=== PATIENT | male | born 2000 | race Caucasian/White ===

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

== ENCOUNTER → 2022-02-22 | Outpatient (CLI) | payer BC, SELFPAY ==
--- NOTE | 2022-02-22 09:00 | ECHOD_ITS ---
Reason For Study: CARDIAC MURMUR Procedure This was a 2D Doppler, Color Flow transthoracic echocardiogram. The study was technically difficult. Due to body habitus. Exam performed in department. Left Ventricle Normal LV size. Left ventricular systolic function is normal. The estimated ejection fraction is 65 %. No evidence for diastolic dysfunction. Right Ventricle Normal RV size. Normal systolic function. Atria Normal left atrium. Normal right atrium. No doppler evidence for ASD. Bubble contrast study negative for right to left interatrial shunt. Mitral Valve There is no mitral annular calcification. Mild diffuse mitral valve thickening. Myxomatous mitral valve. Mild mitral valve prolapse. Mild (1+) eccentric mitral valve insufficiency. Tricuspid Valve Normal tricuspid valve. Trivial tricuspid valve insufficiency. Unable to estimate RV systolic pressure due to insufficient tricuspid regurgitant envelope. Aortic Valve Based upon the 2D echocardiographic images obtained the aortic valve appears compatible with a bicuspid aortic valve without obvious stenosis or insufficiency. Pulmonic Valve The pulmonic valve is not well visualized. Great Vessels Normal sized aortic root. Pericardium/Pleural No pericardial effusion. Medication 22 gauge I.V. with prn adaptor inserted into right arm. Performed a rapid injection of agitated mix of 9 cc saline and 1cc air to assess for atrial septal defect. Bubble study per doctor's order. MMode/2D Measurements & Calculations LVIDd: 4.9 cm IVSd: 0.71 cm Ao root diam: 3.1 cm LVIDs: 3.3 cm LVPWd: 0.74 cm RVDd: 3.2 cm FS: 33.6 % LAV(MOD-sp4): 42.1 ml LA A4 area: 14.3 cm2 LA dimension(2D): 2.8 cm RA A4 area: 10.0 cm2 Time Measurements MV dec time: 0.18 sec Doppler Measurements & Calculations MV E max kamran: 97.5 cm/sec Lat Peak E' Kamran: 21.6 cm/sec Med Peak E' Kamran: 13.7 cm/sec MV A max kamran: 37.7 cm/sec E/E' lat: 4.5 E/E' med: 7.1 MV E/A: 2.6 MV dec slope: 615.8 cm/sec2 Ao V2 max: 97.5 cm/sec LV V1 max: 76.6 cm/sec Ao max P.8 mmHg LV V1 max P.3 mmHg PA V2 max: 85.9 cm/sec ECHO/Echo Complete Interpretation Summary Left ventricular systolic function is normal. The estimated ejection fraction is 65 %. Myxomatous mitral valve. Mild mitral valve prolapse. Mild diffuse mitral valve thickening. Mild (1+) eccentric mitral valve insufficiency. Trivial tricuspid valve insufficiency. Based upon the 2D echocardiographic images obtained the aortic valve appears co mpatible with a bicuspid aortic valve without obvious stenosis or insufficiency. Unable to estimate RV systolic pressure due to insufficient tricuspid regurgita nt envelope. No evidence for diastolic dysfunction. Ordering Physician: Clement Holm Referring Physician: Nena Aguilar Performed By: Gosia Nascimento, MAGGI, RVT
== END | disposition home or self-care (01) ==
PROVIDERS: PCP Family Medicine; Referring Provider Internal Medicine Pulmonary Disease; Visit Provider Internal Medicine Pulmonary Disease
DX: R01.1 Cardiac murmur, unspecified (principal)
CPT/HCPCS: 93306; A4216

== ENCOUNTER → 2025-01-20 | Outpatient (CLI) | payer BC, SELFPAY ==
[2025-01-20 15:54] LABS: Hematocrit 43.6 % (40-54); Hemoglobin 14.8 g/dL (13.0-16.5); Immature Granulocytes Count 0.020 X10^3/uL (0.0-0.0); Mean Corp Hgb Conc 33.9 g/dL (32-36); Mean Corpuscular Volume 83.2 fL (80-94); Mean Platelet Vol. 9.8 fl (6.2-12.0); NRBC Flagged by Analyzer 0 % (0-5); Platelet Count 211 K/mm3 (150-450); RBC Distribution Width CV 13.2 % (11.6-14.6); RBC Distribution Width SD 40.1 fl (35.1-43.9); Red Blood Count 5.24 M/mm3 (4.6-6.2); White Blood Count 10.5 K/mm3 (4.4-11.0)
[2025-01-20 17:15] LABS: Ferritin 146 ng/mL (37-417); Vitamin D,25 Hydroxy 26.4 ng/mL (30-100)
[2025-01-20 17:35] LABS: Iron 93 ug/dL (65-175); Iron Binding Capacity,Total 278 ug/dL (250-450); Iron Binding Capacity,Unsat 185 ug/dL (228-428); Uric Acid 6.7 mg/dL (3.5-7.2)
[2025-01-20 17:44] LABS: Anion Gap 13 (5-15); BUN 18 mg/dL (4-19); BUN/Creat Ratio 12.7 RATIO (10-20); Calcium,Total 9.2 mg/dL (7.6-11.0); Carbon Dioxide 27.5 mmol/L (21.0-32.0); Chloride 98 mmol/L (98-108); Glucose 69 mg/dL (70-99); Potassium 4.0 mmol/L (3.3-5.1)
[2025-01-20 18:00] LABS: Creatinine, Urine (random) 15.60 mg/dL (39.00-259.00); Protein, Urine (Random) < 6.0 mg/dL (0.0-12.0); Protein:Creat Ratio UNABLE TO CALCULATE mg/g CRE (0-200)
[2025-01-20 18:43] LABS: PTHIN 61 pg/mL (11-61)
[2025-01-25 15:08] LABS: PROELU- Albumin, Urine 18.8 % (.); PROELU- Alpha-1-Globulin,Ur 15.6 % (.); PROELU- Alpha-2-Globulin,Ur 22.4 % (.); PROELU- Beta Globulin, Ur 26.3 % (.); PROELU- Gamma Globulin, Ur 16.9 % (.); Total Protein, Ur < 4.0 mg/dL (Not Estab.)
== END | disposition home or self-care (01) ==
PROVIDERS: PCP Family Medicine; Referring Provider Student in an Organized Health Care Education/Training Program; Visit Provider Student in an Organized Health Care Education/Training Program
DX: N26.9 Renal sclerosis, unspecified (principal); D63.1 Anemia in chronic kidney disease; E21.1 Secondary hyperparathyroidism, not elsewhere classified
CPT/HCPCS: 36415; 80048; 82306; 82570; 82728; 83540; 83550; 83970; 84156; 84166; 84550; 85025

== ENCOUNTER → 2025-01-25 | Outpatient (CLI) | payer BC, SELFPAY ==
[2025-01-28 16:09] LABS: Immunoglobulin A 103 mg/dL (90-386); Immunoglobulin G 928 mg/dL (603-1613); Immunoglobulin M 127 mg/dL (20-172); PROEL- A/G Ratio 1.4 (0.7-1.7); PROEL- Albumin 3.9 g/dL (2.9-4.4); PROEL- Alpha-1 Globulin 0.2 g/dL (0.0-0.4); PROEL- Alpha-2 Globulin 0.7 g/dL (0.4-1.0); PROEL- Beta Globulin 0.8 g/dL (0.7-1.3); PROEL- Gamma Globulin 1.1 g/dL (0.4-1.8); PROEL- Globulin, Total 2.8 g/dL (2.2-3.9); PROEL- TOTAL PROTEIN 6.7 g/dL (6.0-8.5); PROEL-M-Spike Not Observed g/dL (Not Observed)
== END | disposition home or self-care (01) ==
LOC: LAB 16:16
PROVIDERS: PCP Family Medicine; Referring Provider Family Medicine; Visit Provider Family Medicine
DX: N26.9 Renal sclerosis, unspecified (principal); N18.9 Chronic kidney disease, unspecified; D63.1 Anemia in chronic kidney disease; E21.1 Secondary hyperparathyroidism, not elsewhere classified
CPT/HCPCS: 82784; 84165; 86334